=== PATIENT | female | born 1960 | race American Indian/Alaskan Native ===

== ENCOUNTER 2016-11-08 07:50 | Emergency (ER) | payer OTHER ==
[2016-11-08 08:00] VITALS: TEMP 98.1; O2SAT 98
[2016-11-08 08:01] VITALS: BMI 32.2
--- NOTE | 2016-11-08 08:29 | ED PDOC ---
Arrival/HPI - General Chief Complaint: Lower Extremity Problem/Injury Time Seen by Provider: 11/08/16 08:29 Historian: Patient - History of Present Illness Narrative History of Present Illness (Text): 11/08/16 08:29 A 56 year old female, whose past medical history includes diabetes and hypertension, presents to the emergency department complaining of a small area of pain and swelling on right upper leg for the past few days. Patient states symtpoms have improved but not fully resolved. Patient denies any fever, chills , nausea, vomiting, diarrhea, abdominal pain, chest pain, shortness of breath or any other complaints. PMD: Dr. Shelton Time/Duration: Other (few days) Symptom Course: Improving Quality: Other Context: Other Past Medical History - Provider Review Nursing Documentation Reviewed: Yes - Cardiac Hx Hypertension: Yes - Endocrine/Metabolic Hx Diabetes Mellitus Type 2: Yes - Psychiatric Hx Depression: Yes Hx Substance Use: No - Surgical History Other/Comment: Bilateral wrist surgery - Suicidal Assessment Feels Threatened In Home Enviroment: No Family/Social History - Physician Review Nursing Documentation Reviewed: Yes Family/Social History: No Known Family HX Smoking Status: Never Smoked Hx Alcohol Use: No Hx Substance Use: No Allergies/Home Meds Allergies/Adverse Reactions: Allergies strawberry Allergy (Verified 11/08/16 08:02) ANGIOEDEMA Review of Systems - Physician Review All systems were reviewed & negative as marked: Yes - Review of Systems Constitutional: absent: Fevers, Night Sweats Respiratory: absent: SOB Cardiovascular: absent: Chest Pain Gastrointestinal: absent: Abdominal Pain, Diarrhea, Nausea, Vomiting Musculoskeletal: Other (Pain and swelling in small area of right upper leg) Physical Exam - Physical Exam Narrative Physical Exam (Text): Constitutional: No acute distress. Head: Normocephalic. Atraumatic. Eyes: PERRL. ENT: Moist mucous membranes. Neck: Supple. Cardiovascular: Regular rate. Chest: No tenderness. Respiratory: Clear to auscultation bilaterally. GI: Soft. Nontender. Nondistended. Back: No CVA tenderness. Musculoskeletal: No tenderness or swelling of extremities. Skin: 2 cm area of induration and erythema in right inner thigh. No obvious fluctuance. Neurologic: Alert, no focal deficit. Vital Signs Reviewed: Yes Vital Signs Temp Pulse Resp BP Pulse Ox 11/08/16 07:58 98.1 F 82 16 151/90 H 98 Temperature: Afebrile Blood Pressure: Hypertensive Pulse: Regular Respiratory Rate: Normal Appearance: Positive for: Well-Appearing, Non-Toxic, Comfortable Pain Distress: None Mental Status: Positive for: Alert and Oriented X 3 Medical Decision Making ED Course and Treatment: 11/08/16 08:29 Impression: A 56 year old female with a small area of pain and swelling on right inner thigh. Plan: -- Doryx -- Reassess and disposition Progress Notes: Attempted to drain 2 cm area of induration on right inner thigh, Lidocaine and 18 gag needle used. No pus obtained. Will treat as cellulitis. Advised patient on precautions to take concerning abscesses. Patient in agreement with plan to be discharged home. Patient is stable for discharge. Patient was instructed to follow up with physician or return if symptoms worsen or new concerning symptoms arise. - Medication Orders Current Medication Orders: Discontinued Medications Doxycycline Hyclate (Doryx) 100 mg PO STAT STA PRN Reason: Protocol Stop: 11/08/16 08:50 Lidocaine HCl (Lidocaine 1% (20ml)) Confirm Administered Dose 20 ml .ROUTE .[facility] Stop: 11/08/16 08:42 - Scribe Statement The provider has reviewed the documentation as recorded by the Lulu Ng Provider Scribe Attestation: All medical record entries made by the Scribe were at my direction and personally dictated by me. I have reviewed the chart and agree that the record accurately reflects my personal performance of the history, physical exam, medical decision making, and the department course for this patient. I have also personally directed, reviewed, and agree with the discharge instructions and disposition. Disposition/Present on Arrival - Present on Arrival Any Indicators Present on Arrival: No History of DVT/PE: No History of Uncontrolled Diabetes: No Urinary Catheter: No History of Decub. Ulcer: No History Surgical Site Infection Following: None - Disposition Have Diagnosis and Disposition been Completed?: Yes Diagnosis: Cellulitis Disposition: HOME/ ROUTINE Disposition Time: 08:50 Patient Plan: Discharge Condition: STABLE Discharge Instructions (ExitCare): Cellulitis (ED) Prescriptions: Doxycycline Monohydrate 100 mg PO BID #19 tablet Referrals: Rhona Shelton MD [Primary Care Provider] - Follow up with primary
[2016-11-08] MEDS ORDERED: Lidocaine 1% Inj (20ml) ONE (08:41)
[2016-11-08 09:04] VITALS: BP 143/90; PULSE 73; RESP 17
== END 2016-11-08 09:04 | disposition home or self-care (01) ==
LOC: ED 07:50
DX: L03.115 Cellulitis of right lower limb (principal); E11.9 Type 2 diabetes mellitus without complications; I10 Essential (primary) hypertension

== ENCOUNTER 2017-05-30 14:24 | Emergency (ER) | payer OTHER ==
[2017-05-30 14:39] VITALS: BMI 29.2
[2017-05-30 14:45] VITALS: RESP 18; TEMP 98.1
--- NOTE | 2017-05-30 14:48 | ED PDOC ---
Arrival/HPI - General Chief Complaint: Burn Time Seen by Provider: 05/30/17 14:48 Historian: Patient - History of Present Illness Narrative History of Present Illness (Text): 05/30/17 14:48 56 y/o female, pmh including htn/hyperlipidemia/dm, nkda, last tetanus doesn't remember, c/o rt. hand burn by the grease last night while cooking. Pt. stated it was a blister, bursted by herself, no numbness or tingling, no difficulty moving the rt. hand hand or 5 digits, no rash, no palpitation, no other medical or psychological complaints. Past Medical History - Provider Review Nursing Documentation Reviewed: Yes - Infectious Disease Hx of Infectious Diseases: None - Cardiac Hx Hypertension: Yes - Endocrine/Metabolic Hx Diabetes Mellitus Type 1: Yes - Psychiatric Hx Depression: Yes Hx Substance Use: No - Surgical History Hx Tubal Ligation: Yes Other/Comment: Bilateral wrist surgery - Anesthesia Hx Anesthesia: Yes Hx Anesthesia Reactions: No Hx Malignant Hyperthermia: No - Suicidal Assessment Feels Threatened In Home Enviroment: No Family/Social History - Physician Review Nursing Documentation Reviewed: Yes Family/Social History: Unknown Family HX Smoking Status: Never Smoked Hx Alcohol Use: No Hx Substance Use: No Allergies/Home Meds Allergies/Adverse Reactions: Allergies No Known Allergies Allergy (Verified 05/30/17 14:39) Home Medications: Home Meds Medication Instructions Recorded Confirmed Insulin Lispro Protamin/Lispro 35 units SC BID 05/30/17 05/30/17 [Humalog Mix 75-25 Kwikpen] Losartan/Hydrochlorothiazide 1 tab PO DAILY 05/30/17 05/30/17 [Losartan-Hctz 50-12.5 mg Tab] Simvastatin [Zocor] 1 tab PO HS 05/30/17 05/30/17 Review of Systems - Review of Systems Constitutional: absent: Fatigue, Fevers Eyes: absent: Vision Changes ENT: absent: Hearing Changes Respiratory: absent: SOB, Cough Cardiovascular: absent: Chest Pain Gastrointestinal: absent: Abdominal Pain, Diarrhea, Nausea, Vomiting Musculoskeletal: absent: Arthralgias, Back Pain Skin: Skin Lesions. absent: Rash, Pruritis, Ulcer, Cellulitis Neurological: absent: Headache, Dizziness Psychiatric: absent: Anxiety, Depression Physical Exam Vital Signs Reviewed: Yes Vital Signs Temp Pulse Resp BP Pulse Ox 05/30/17 14:44 98.1 F 97 H 18 144/81 95 Temperature: Afebrile Blood Pressure: Normal Pulse: Regular Respiratory Rate: Normal Appearance: Positive for: Well-Appearing, Non-Toxic, Comfortable Pain Distress: Mild Mental Status: Positive for: Alert and Oriented X 3 - Systems Exam Head: Present: Atraumatic, Normocephalic Pupils: Present: PERRL Extroacular Muscles: Present: EOMI Conjunctiva: Present: Normal Mouth: Present: Moist Mucous Membranes Neck: Present: Normal Range of Motion Respiratory/Chest: Present: Clear to Auscultation, Good Air Exchange. No: Respiratory Distress, Accessory Muscle Use Cardiovascular: Present: Regular Rate and Rhythm, Normal S1, S2. No: Murmurs Abdomen: Present: Normal Bowel Sounds. No: Tenderness, Distention, Peritoneal Signs Back: Present: Normal Inspection Upper Extremity: Present: Normal Inspection. No: Cyanosis, Edema Lower Extremity: Present: Normal Inspection. No: Edema Neurological: Present: GCS=15, Speech Normal, Motor Func Grossly Intact, Gait Normal, Memory Normal Skin: Present: Warm, Dry, Rashes (Rt. hand dorsum noted 1st digit hand noted to have 2 blisters approx. 1cm and 3cm diameter, no streaking or ulcers, no cellulitis, FROM without limitation, sensation intact, motor 5/5. ), Normal Color Psychiatric: Present: Alert, Oriented x 3, Normal Insight, Normal Concentration Medical Decision Making ED Course and Treatment: 05/30/17 15:01 -motrin/silverdene after clean with normal saline, tdap -Discharge home with silverdene, naproxen, follow with your own pmd and web press operator helper offset within 2 days, return the ER for any new or worsening signs or symptoms. - Medication Orders Current Medication Orders: Discontinued Medications Ibuprofen (Motrin Tab) 600 mg PO STAT STA Stop: 05/30/17 14:55 Silver Sulfadiazine (Silvadene 1% 25 Gm) 1 gm TP STAT STA Stop: 05/30/17 14:55 Tetanus/Reduced Diphtheria/Acell Pertussis (Boostrix Vaccine Inj) 0.5 ml IM .ONCE ONE Stop: 05/30/17 14:55 - PA / SECURITY GUARDS DISPATCHER / Resident Statement /DO has reviewed & agrees with the documentation as recorded. Disposition/Present on Arrival - Present on Arrival Any Indicators Present on Arrival: No History of DVT/PE: No History of Uncontrolled Diabetes: No Urinary Catheter: No History of Decub. Ulcer: No History Surgical Site Infection Following: None - Disposition Have Diagnosis and Disposition been Completed?: Yes Diagnosis: 2nd degree burn Disposition: HOME/ ROUTINE Disposition Time: 15:02 Patient Plan: Discharge Condition: GOOD Additional Instructions: -Discharge home with silverdene, naproxen, follow with your own pmd and web press operator helper offset within 2 days, return the ER for any new or worsening signs or symptoms. Prescriptions: Naproxen 500 mg PO BID PRN #20 tab PRN Reason: Other Silver Sulfadiazine 1% 25 gm [Silvadene 1% 25 gm] 1 appful TP BID #30 g Referrals: Rhona Shelton MD [Primary Care Provider] - Follow up with primary Juliane King MD [Staff Provider] - Follow up with primary Forms: WORK NOTE
[2017-05-30] MEDS ORDERED: TDAP Vaccine 0.5 mL Syr IM ONE (14:54)
[2017-05-30] MEDS ORDERED: Silver Sulfadiazine 1% Cream (25 gm) TP STA (14:54)
[2017-05-30 15:38] VITALS: BP 139/78; PULSE 90; O2SAT 96
== END 2017-05-30 15:37 | disposition home or self-care (01) ==
LOC: ED 14:24
DX: T23.261A Burn of second degree of back of right hand, initial encounter (principal); X10.2XXA Contact with fats and cooking oils, initial encounter; Y93.G3 Activity, cooking and baking; Y92.89 Other specified places as the place of occurrence of the external cause; Z23 Encounter for immunization

== ENCOUNTER 2017-11-27 12:17 | Emergency (ER) | payer OTHER ==
[2017-11-27 12:48] VITALS: RESP 18; BMI 34.5
--- NOTE | 2017-11-27 12:59 | ED PDOC ---
Arrival/HPI - General Chief Complaint: Abnormal Skin Integrity Time Seen by Provider: 11/27/17 12:54 Historian: Patient - History of Present Illness Narrative History of Present Illness (Text): 11/27/17 12:54 57 y/o female, pmh including htn/hld/dm, post menopausal, nkda, c/o pubic region lump x 1 day. Pt. stated that she recent shaved the pubic region, noticed to have a painful bump on her pubic region today, no fever or chills, no night sweat, no dizziness, eating and drinking well, no other medical or psychological complaints. Past Medical History - Provider Review Nursing Documentation Reviewed: Yes - Infectious Disease Hx of Infectious Diseases: None - Cardiac Hx Hypertension: Yes - Pulmonary Hx Respiratory Disorders: No - Neurological Hx Neurological Disorder: No - HEENT Hx HEENT Disorder: No - Renal Hx Renal Disorder: No - Endocrine/Metabolic Hx Diabetes Mellitus Type 1: Yes - Hematological/Oncological Hx Blood Disorders: No - Integumentary Hx Dermatological Disorder: No - Musculoskeletal/Rheumatological Hx Musculoskeletal Disorders: No - Gastrointestinal Hx Gastrointestinal Disorders: No - Genitourinary/Gynecological Hx Genitourinary Disorders: No - Psychiatric Hx Depression: Yes Hx Substance Use: No - Surgical History Hx Tubal Ligation: Yes Other/Comment: Bilateral wrist surgery - Anesthesia Hx Anesthesia: Yes Hx Anesthesia Reactions: No Hx Malignant Hyperthermia: No - Suicidal Assessment Feels Threatened In Home Enviroment: No Family/Social History - Physician Review Nursing Documentation Reviewed: Yes Family/Social History: Unknown Family HX Smoking Status: Never Smoked Hx Alcohol Use: No Hx Substance Use: No Allergies/Home Meds Allergies/Adverse Reactions: Allergies No Known Allergies Allergy (Verified 11/27/17 12:48) Home Medications: Home Meds Medication Instructions Recorded Confirmed Insulin Lispro Protamin/Lispro 35 units SC BID 05/30/17 11/27/17 [Humalog Mix 75-25 Kwikpen] Losartan/Hydrochlorothiazide 1 tab PO DAILY 05/30/17 11/27/17 [Losartan-Hctz 50-12.5 mg Tab] Simvastatin [Zocor] 1 tab PO HS 05/30/17 11/27/17 Review of Systems - Review of Systems Constitutional: absent: Fatigue, Fevers Eyes: absent: Vision Changes ENT: absent: Hearing Changes Respiratory: absent: SOB, Cough Cardiovascular: absent: Chest Pain Gastrointestinal: absent: Abdominal Pain, Nausea, Vomiting Skin: Skin Lesions. absent: Rash, Pruritis Neurological: absent: Headache Psychiatric: absent: Anxiety, Depression Physical Exam Vital Signs Reviewed: Yes Vital Signs Temp Pulse Resp BP Pulse Ox 11/27/17 12:43 98.4 F 108 H 18 176/81 H 97 Temperature: Afebrile Blood Pressure: Hypertensive Pulse: Tachycardic Respiratory Rate: Normal Appearance: Positive for: Well-Appearing, Non-Toxic, Comfortable Pain Distress: Mild Mental Status: Positive for: Alert and Oriented X 3 - Systems Exam Head: Present: Atraumatic, Normocephalic Pupils: Present: PERRL Extroacular Muscles: Present: EOMI Conjunctiva: Present: Normal Mouth: Present: Moist Mucous Membranes Neck: Present: Normal Range of Motion Respiratory/Chest: Present: Clear to Auscultation, Good Air Exchange. No: Respiratory Distress, Accessory Muscle Use Cardiovascular: Present: Regular Rate and Rhythm, Normal S1, S2. No: Murmurs Abdomen: No: Tenderness, Distention, Peritoneal Signs Back: Present: Normal Inspection Upper Extremity: Present: Normal Inspection. No: Cyanosis, Edema Lower Extremity: Present: Normal Inspection. No: Edema Neurological: Present: GCS=15, CN II-XII Intact, Speech Normal, Motor Func Grossly Intact, Gait Normal, Memory Normal Skin: Present: Warm, Dry, Rashes (pubic region noted to have a bump approx. 0.75cm diameter nonfluctuant abscess, no ulcers, no oozing/discharge), Normal Color Psychiatric: Present: Alert, Oriented x 3, Normal Insight, Normal Concentration Medical Decision Making ED Course and Treatment: 11/27/17 13:01 -ABscess is too early to drained, will placed on clindamycin -Discharge home with clindamycin, take tylenol or motrin at home for pain, heat compression, follow up with your own pmd and general surgeon within 2 day, return to the ER for any new or worsening signs or symptoms. - PA / TREATMENT COORDINATOR / Resident Statement / has reviewed & agrees with the documentation as recorded. Disposition/Present on Arrival - Present on Arrival Any Indicators Present on Arrival: No History of DVT/PE: No History of Uncontrolled Diabetes: No Urinary Catheter: No History of Decub. Ulcer: No History Surgical Site Infection Following: None - Disposition Have Diagnosis and Disposition been Completed?: Yes Diagnosis: Abscess Disposition: HOME/ ROUTINE Disposition Time: 13:02 Patient Plan: Discharge Condition: GOOD Additional Instructions: Discharge home with clindamycin, take tylenol or motrin at home for pain, heat compression, follow up with your own pmd and general surgeon within 2 day, return to the ER for any new or worsening signs or symptoms. Prescriptions: Clindamycin [Cleocin] 300 mg PO TID #21 cap Referrals: Eduardo Bosch MD [Staff Provider] - Follow up with primary Forms: [employer] (Swedish), WORK NOTE
[2017-11-27 13:05] VITALS: BP 131/71; PULSE 92
[2017-11-27 13:27] VITALS: TEMP 98.5; O2SAT 97
== END 2017-11-27 13:05 | disposition home or self-care (01) ==
LOC: ED 12:17
DX: L02.818 Cutaneous abscess of other sites (principal)